=== PATIENT | female | born 1985 | race Caucasian/White ===

== ENCOUNTER 2016-12-15 18:52 | Emergency (ER) | payer BC ==
[~2016-12-15] VITALS: Ht 177.8 cm; Wt 113.6 kg
[2016-12-15 18:56] VITALS: TEMP 98.1
[2016-12-15] MEDS ORDERED: CRUTCHES MC (20:29)
[2016-12-15 20:50] VITALS: BP 120/68; PULSE 81
== END 2016-12-15 20:51 | disposition home or self-care (01) ==
LOC: COL.ER 18:52
DX: S83.91XA Sprain of unspecified site of right knee, initial encounter (principal); Z90.89 Acquired absence of other organs; W17.89XA Other fall from one level to another, initial encounter
CPT/HCPCS: L1830

== ENCOUNTER → 2017-09-23 | Outpatient (CLI) | payer BC ==
[~2017-09-23] MED LIST: CRUTCHES MC
== END ==
LOC: COL.LAB 10:42
DX: O28.8 Other abnormal findings on antenatal screening of mother (principal); R76.8 Other specified abnormal immunological findings in serum; Z3A.12 12 weeks gestation of pregnancy

== ENCOUNTER 2018-02-26 17:31 | Emergency (ER) | payer BC ==
[~2018-02-26] VITALS: Ht 177.8 cm; Wt 118.2 kg
[2018-02-26 17:35] VITALS: TEMP 98.9
[2018-02-26 18:20] LABS: COLLECTION METHOD CLEAN CATCH
[2018-02-26 18:23] LABS: BASO % 0.1 % (0.0-2.0); EOS # 0.1 (0.0-0.7); EOS % 0.7 % (0-4.0); GRAN # 12.4 (1.4-6.5); GRAN % 91.8 % (42.2-75.2); HEMATOCRIT 41.6 % (37.0-47.0); HEMOGLOBIN 14.2 g/dl (12.5-16.0); LYMPH # 0.5 (1.2-3.4); LYMPH % 3.6 % (20.0-51.0); MEAN CELL VOLUME 82 fl (80.0-100.0); MEAN CORPUSCULAR HEMOGLOBIN 28 pg (27.0-31.0); MEAN CORPUSCULAR HGB CONC 34 g/dl (33.0-37.0); MEAN PLATELET VOLUME 10.5 fl (7.4-10.4); MONO # 0.5 (0.1-0.6); MONO % 3.5 % (1.7-9.3); PLATELET COUNT 169 K/mm3 (130-400); RED BLOOD COUNT 5.09 M/mm3 (4.10-5.30); REDCELL DISTRIBUTION WIDTH-CV 15.9 % (11.5-14.5)
[2018-02-26 18:40] LABS: ALBUMIN 3.6 gm/dL (3.5-5.0); CALCIUM 9.3 mg/dL (8.4-10.2); CREATININE, serum 0.48 mg/dL (0.52-1.25); POTASSIUM 3.6 mmol/L (3.4-5.0); TOTAL PROTEIN 6.4 gm/dL (6.4-8.2)
[2018-02-26 18:45] LABS: MUCOUS Present /lpf; PH 5 (5-8); SQUAMOUS EPITHELIAL 0-2 /hpf; URINE APPEARANCE Clear; URINE BACTERIA None Seen /hpf; URINE BILIRUBIN Negative (NEGATIVE); URINE BLOOD 2+ (NEGATIVE); URINE COLOR Yellow; URINE GLUCOSE Negative (NEGATIVE); URINE KETONE 2+ (NEGATIVE); URINE LEUKOCYTE ESTERASE Negative (NEGATIVE); URINE NITRATE Negative (NEGATIVE); URINE PROTEIN(semi-quant) 1+ (NEGATIVE)
--- NOTE | 2018-02-26 19:34 | NUR ---
NST done. 1931 - 1952. Baseline bpm 140, accelerations noted, no decelerations. Contractions every 3-4 minutes for 50 - 60 seconds. Pt denies feeling any pain, reports she just feels like the baby is moving when she has contractions.
[2018-02-26 20:21] VITALS: BP 129/80; PULSE 97
== END 2018-02-26 20:24 | disposition home or self-care (01) ==
LOC: COL.ER 17:31
PROVIDERS: Physician Assistant
DX: O99.613 Diseases of the digestive system complicating pregnancy, third trimester (principal); K52.9 Noninfective gastroenteritis and colitis, unspecified; Z90.49 Acquired absence of other specified parts of digestive tract; Z88.1 Allergy status to other antibiotic agents; Z3A.35 35 weeks gestation of pregnancy
CPT/HCPCS: J2405; J7030

== ENCOUNTER 2018-03-14 18:37 | Outpatient (CLI) | payer BC ==
[~2018-03-14] VITALS: Ht 177.8 cm; Wt 121.4 kg
[2018-03-14 18:46] VITALS: BP 128/83; PULSE 86; TEMP 98.2
[2018-03-14] MEDS ORDERED: PRENATAL MVI (18:58)
--- NOTE | 2018-03-14 19:00 | NUR ---
184- Patient ambulatory to LDR-5 from ED with . Patient states she has had severe back pain, constantly rating 6/10, for >1 week and has increasingly gotten worse since yesterday. Patient states she was seen in the office yesterday by RECEIVING CHECKER and had spotting after SVE and complains of increased "bloody show" today that she describes as "bleeding like the last day of a period", but denies filling a pad throughout the day. Patient also is complaining of increased pressure in lower back and bottom and states contractions are intermittently 8 minutes apart, lasting 40-50 seconds each. Patient denies leaking of fluid. Assessment completed. VSS. 1899- SVE / by this RN with no trace of bloody show or discharge on glove after check. 1914- updated. Orders for UA received. Call with results.
[2018-03-14 19:30] VITALS: BP 125/84; PULSE 73
[2018-03-14 19:31] LABS: COLLECTION METHOD CLEAN CATCH
[2018-03-14 19:40] LABS: MUCOUS Present /lpf; PH 6 (5-8); URINE APPEARANCE Hazy; URINE BACTERIA Rare /hpf; URINE BILIRUBIN Negative (NEGATIVE); URINE BLOOD 3+ (NEGATIVE); URINE COLOR Yellow; URINE GLUCOSE Negative (NEGATIVE); URINE KETONE Trace (NEGATIVE); URINE LEUKOCYTE ESTERASE 1+ (NEGATIVE); URINE NITRATE Negative (NEGATIVE); URINE PROTEIN(semi-quant) Negative (NEGATIVE); URINE RBC >50 /hpf; URINE UROBILINOGEN Negative (NEGATIVE)
[2018-03-14 20:00] VITALS: BP 131/87; PULSE 87
--- NOTE | 2018-03-14 20:50 | NUR ---
2029- Macrobid 100mg PO BID x 7 days called into [facility]. 2044- Macrobid 100mg PO given. See eMAR. Discharge education completed with patient and spouse. 2049- Patient and ambulatory off unit.
== END 2018-03-14 20:50 | disposition home or self-care (01) ==
LOC: LDRO 18:37
PROVIDERS: Obstetrics & Gynecology
DX: O62.9 Abnormality of forces of labor, unspecified (principal); Z3A.37 37 weeks gestation of pregnancy

== ENCOUNTER → 2018-04-23 | Emergency (ER) | payer BC ==
[~2018-04-23] VITALS: Ht 177.8 cm; Wt 111.4 kg
[~2018-04-23] MED LIST changes: +DYNAPEN 250MG250 MG PO; +IBU600 MG PO; +PERCOCET 325 MG1 TA2 PO; +PRENATAL MVI
[2018-04-24 02:27] VITALS: BP 116/70; PULSE 96; TEMP 98.8
[2018-04-24 16:23] LABS: BASO % 0.1 % (0.0-2.0); EOS # 0.1 (0.0-0.7); EOS % 0.6 % (0-4.0); GRAN # 6.9 (1.4-6.5); GRAN % 85.7 % (42.2-75.2); HEMATOCRIT 37.8 % (37.0-47.0); HEMOGLOBIN 12.5 g/dl (12.5-16.0); LYMPH # 0.6 (1.2-3.4); LYMPH % 7.6 % (20.0-51.0); MEAN CELL VOLUME 83 fl (80.0-100.0); MEAN CORPUSCULAR HEMOGLOBIN 27 pg (27.0-31.0); MEAN CORPUSCULAR HGB CONC 33 g/dl (33.0-37.0); MEAN PLATELET VOLUME 9.8 fl (7.4-10.4); MONO # 0.5 (0.1-0.6); MONO % 5.8 % (1.7-9.3); PLATELET COUNT 202 K/mm3 (130-400); RED BLOOD COUNT 4.58 M/mm3 (4.10-5.30); REDCELL DISTRIBUTION WIDTH-CV 14.6 % (11.5-14.5)
[2018-04-24 17:02] LABS: ALBUMIN 3.6 gm/dL (3.5-5.0); BILIRUBIN,TOTAL 0.9 mg/dL (0.0-1.0); CALCIUM 8.8 mg/dL (8.4-10.2); CREATININE, serum 0.81 mg/dL (0.52-1.25); POTASSIUM 3.5 mmol/L (3.4-5.0); TOTAL PROTEIN 6.3 gm/dL (6.4-8.2)
== END ==
LOC: COL.ER 10:04
PROVIDERS: Family Medicine
DX: N61.0 Mastitis without abscess (principal); Z90.89 Acquired absence of other organs

== ENCOUNTER 2019-02-06 20:54 | Inpatient (IN) | payer BC ==
[~2019-02-06] VITALS: Ht 177.8 cm; Wt 123.4 kg
[2019-02-06 21:31] LABS: BASO % 0.3 % (0.0-2.0); EOS # 0.3 (0.0-0.7); EOS % 3.2 % (0-4.0); GRAN # 5.9 (1.4-6.5); GRAN % 68.7 % (42.2-75.2); HEMATOCRIT 39.8 % (37.0-47.0); HEMOGLOBIN 12.9 g/dl (12.5-16.0); LYMPH # 1.6 (1.2-3.4); LYMPH % 18.7 % (20.0-51.0); MEAN CELL VOLUME 82 fl (80.0-100.0); MEAN CORPUSCULAR HEMOGLOBIN 27 pg (27.0-31.0); MEAN CORPUSCULAR HGB CONC 32 g/dl (33.0-37.0); MEAN PLATELET VOLUME 9.5 fl (7.4-10.4); MONO # 0.8 (0.1-0.6); MONO % 8.9 % (1.7-9.3); PLATELET COUNT 241 K/mm3 (130-400); RED BLOOD COUNT 4.87 M/mm3 (4.10-5.30)
[2019-02-06 21:44] LABS: ALANINE AMINOTRANSFERASE 9 U/L (9-52); ALBUMIN 4.6 gm/dL (3.5-5.0); ALKALINE PHOSPHATASE 58 U/L (50-136); ANION GAP 9 mmol/L (7-16); AST,SGOT 18 U/L (15-37); BILIRUBIN,TOTAL 0.8 mg/dL (0.0-1.0); BLOOD UREA NITROGEN 19 mg/dL (7-17); CALCIUM 9.3 mg/dL (8.4-10.2); CARBON DIOXIDE 28 mmol/L (22-30); CHLORIDE 102 mmol/L (98-107); CREATININE, serum 0.84 (0.52-1.25); GLUCOSE 144 mg/dL (74-106); POTASSIUM 3.7 mmol/L (3.4-5.0); SODIUM 139 mmol/L (137-145); TOTAL PROTEIN 7.5 gm/dL (6.4-8.2)
[2019-02-06 21:57] LABS: TROPONIN-I < 0.012 ng/mL (0.000-0.035)
[2019-02-06 23:07] LABS: PARTIAL THROMBOPLASTIN TIME 39.9 SECONDS (26.0-37.0)
--- NOTE | 2019-02-06 23:34 | NUR ---
Received report from ED nurse
--- NOTE | 2019-02-06 23:50 | NUR ---
Patient arrives to ICU room 7 via ED wheelchair. Patient ambulates to bed with standby assist. Heparin drip is infusing at 2200 units/hour to a peripheral site in the [facility] upon arrival. Initial vitals are all within normal limits. Patient reports a single suture in the perineal area from D&C procedure on Friday; no other skin issues noted. Patient reports "stabbing" pain as 5/10 in the left shoulder and chest area. Provider notified and orders received for morphine and zofran. A repeat HepXa has been ordered for 514. Will continue to monitor.
[2019-02-07 01:16] VITALS: BP 126/71; PULSE 108; TEMP 98.6
--- NOTE | 2019-02-07 02:20 | NUR ---
Patient continues to report chest and L shoulder pain despite 0045 administration of PRN morphine. Physician notified; received orders for a one-time dose of 4mg morhpine IV.
--- NOTE | 2019-02-07 05:20 | NUR ---
Patient's chest and shoulder pain has not resolved or improved since last administration of morphine at 0220. Patient states pain is a 9/10 and describes pain as sharp and stabbing. Lung sounds continue to sound clear to ausculatation and vitals are within normal limits. Physician notified. Received orders for a 2-view chest x-ray and a one-time dose of fentanyl 50 mcg IV. Patient was assisted to the recliner, as she stated she felt the best when sitting up. Will continue to monitor and reassess.
[2019-02-07 05:24] LABS: BASO % 0.4 % (0.0-2.0); EOS # 0.2 (0.0-0.7); EOS % 1.4 % (0-4.0); GRAN # 8.6 (1.4-6.5); GRAN % 80.2 % (42.2-75.2); HEMATOCRIT 38.7 % (37.0-47.0); HEMOGLOBIN 12.7 g/dl (12.5-16.0); LYMPH # 1.1 (1.2-3.4); LYMPH % 10.5 % (20.0-51.0); MEAN CELL VOLUME 81 fl (80.0-100.0); MEAN CORPUSCULAR HEMOGLOBIN 27 pg (27.0-31.0); MEAN CORPUSCULAR HGB CONC 33 g/dl (33.0-37.0); MEAN PLATELET VOLUME 9.8 fl (7.4-10.4); MONO # 0.8 (0.1-0.6); MONO % 7.2 % (1.7-9.3); PLATELET COUNT 236 K/mm3 (130-400); RED BLOOD COUNT 4.76 M/mm3 (4.10-5.30); REDCELL DISTRIBUTION WIDTH-CV 15.2 % (11.5-14.5)
[2019-02-07 05:28] LABS: CALCIUM 8.7 mg/dL (8.4-10.2); CREATININE, serum 0.7 (0.52-1.25); POTASSIUM 3.8 mmol/L (3.4-5.0)
--- NOTE | 2019-02-07 07:33 | NUR ---
Report recieved from Rosie CALDWELL. IV medications verified. Patient denies needs at this time.
--- NOTE | 2019-02-07 07:33 | NUR ---
Report given to JAVI Reed.
[2019-02-07 08:00] VITALS: BP 110/70; PULSE 104; TEMP 97.5
[2019-02-07 12:00] VITALS: BP 111/62; PULSE 115
[2019-02-07 16:45] VITALS: BP 99/65; PULSE 110; TEMP 97.2
--- NOTE | 2019-02-07 16:45 | NUR ---
Continues to sit up in chair with at bedside. Denies need for PRN for pain, states "it's only bad when I try to take a deep breath or cough." Will continue to monitor for need for PRN medication.
--- NOTE | 2019-02-07 19:19 | NUR ---
Bedside report given to Maverick CALDWELL. Patient states minimal relief after Ultram, offered [place] and/or Zanaflex. Will let night shift manager nurse know.
[2019-02-07 20:00] VITALS: BP 113/64; PULSE 87; TEMP 98.6
--- NOTE | 2019-02-07 20:00 | NUR ---
PATIENT SITTING UP IN RECLINER, PAIN 5/10 LEFT SHOULDER, MUSCLE RELAXER GIVEN
--- NOTE | 2019-02-07 22:01 | NUR ---
PATIENT ASLEEP AND WANTS TO STAY IN RECLINER.
[2019-02-08 00:10] VITALS: BP 107/60; PULSE 90; TEMP 97.8
[2019-02-08 04:00] VITALS: BP 115/60; PULSE 86; TEMP 96.3
[2019-02-08 08:00] VITALS: BP 119/76; PULSE 115; TEMP 97.9
--- NOTE | 2019-02-08 08:00 | NUR ---
Shift assessment complete at this time. Plan of care reviewed at bedside with patient. Additional time taken to address any other needs or concerns. Vitals stable at this time. Pt reports mild to moderate shoulder pain on L side. Will administer PRN Morley per orders. See eMAR for documentation. Pt denies any other complaints or concerns at this time. Pt resting in chair, call light within reach, will continue to monitor.
--- NOTE | 2019-02-08 09:31 | NUR ---
Initial visit; Patient and her thanked Scrap Charger for looking in on her and keeping her in Scrap Charger's prayers. Patient expecting visit from her Tobacco Packing Machine Operator.
[2019-02-08 12:00] VITALS: BP 96/56; PULSE 86; TEMP 98
[2019-02-08] MEDS ORDERED: ZANAFLEX 4MG TAB4 MG PO (12:12)
[2019-02-08] MEDS ORDERED: NAPROSYN500 MG PO (12:13)
--- NOTE | 2019-02-08 13:54 | NUR ---
Consulting Senior Practice Director met with patient and patient's , Randell (ph#[phone]) to discuss discharge plan. Patient lives in [place] with her and 10 month old son. Patient sees Dr. Lopez for primary care, however has not been seen in a couple years. Patient reports she usually just utilizes Urgent Care whenever she has a problem. Patient obtains medications from [facility]. Patient does not have Advance Directives at this time but states she and her have been discussing completing them soon. Patient will return home upon discharge. No additional concerns at this time.
== END 2019-02-08 12:46 | disposition home or self-care (01) | DRG 556 ==
LOC: COL.ER 20:54 → ICU 23:50
PROVIDERS: Emergency Medicine; Physician Assistant; ADMIT Hospitalist
DX: M25.512 Pain in left shoulder (principal); G56.21 Lesion of ulnar nerve, right upper limb; R07.89 Other chest pain; Z90.89 Acquired absence of other organs
CPT/HCPCS: 99239; A9284; C9113; J1644; J1885; J2270; J2405; J2765; J3010; J7030; Q9967

== ENCOUNTER → 2020-02-21 | Outpatient (CLI) | payer BC ==
[~2020-02-21] MED LIST changes: +NAPROSYN500 MG PO; +ZANAFLEX 4MG TAB4 MG PO
== END ==
LOC: DIA.ED
DX: O24.419 Gestational diabetes mellitus in pregnancy, unspecified control (principal)
CPT/HCPCS: G0108

== ENCOUNTER → 2020-03-13 | Outpatient (CLI) | payer BC | LOC: DIA.ED 07:41 | DX: O24.419 Gestational diabetes mellitus in pregnancy, unspecified control (principal); E03.9 Hypothyroidism, unspecified | CPT/HCPCS: G0108 ==

== ENCOUNTER 2020-03-21 12:21 | Outpatient (CLI) | payer BC ==
[~2020-03-21] VITALS: Ht 180.3 cm; Wt 124.1 kg
--- NOTE | 2020-03-21 12:15 | NUR ---
PATIENT HERE FOR OB CHECK. PATIENT TO LR 3. CHANGED INTO GOWN, ON EFM, ANUM CASTRO. PATIENT HERE. PATIENT STATES SHE FELL ON FRIDAY DOWN HER STAIRS ON HER BOTTOM. PATIENT STATES SHE HAD CONTRACTIONS EVERY 6 MINUTES YESTERDAY LASTING 1 MINUTE LONG. PATIENT STATES SHE HAS BLOODY DISCHARGE, BUT WAS CHECKED ON FRIDAY IN THE OFFICE. SVE PREFORMED. /3OLD DARK BLOOD NOTED ON GLOVE. DR ALANIS NOTIFIED
[2020-03-21 13:00] VITALS: BP 117/76; PULSE 88; TEMP 98
[2020-03-21 13:30] VITALS: BP 118/83; PULSE 99
[2020-03-21 13:40] VITALS: BP 117/71; PULSE 95
== END 2020-03-21 13:50 | disposition home or self-care (01) ==
LOC: LDRO 12:21
DX: O62.9 Abnormality of forces of labor, unspecified (principal); O9A.213 Injury, poisoning and certain other consequences of external causes complicating pregnancy, third trimester; Z3A.37 37 weeks gestation of pregnancy; Z86.16 Personal history of COVID-19

== ENCOUNTER → 2020-04-07 | Outpatient (CLI) | payer BC | LOC: ZCOL.LAB 08:00 | DX: Z20.822 Contact with and (suspected) exposure to COVID-19 (principal) ==

== ENCOUNTER 2020-04-12 06:39 | Inpatient (IN) | payer BC ==
[~2020-04-12] VITALS: Ht 180.3 cm; Wt 123.2 kg
[2020-04-12] VITALS (27 sets, daily range): BP systolic 106–150; BP diastolic 58–88; PULSE 71–101; TEMP 98.1–98.3
--- NOTE | 2020-04-12 08:01 | NUR ---
0700 PATIENT HERE FROM HOME FOR INDUCTION OF LABOR. EFM ON FHT 120 BABY VERY ACTIVE. CONTRACTIONS IRREGULAR AND MILD AT THIS TIME. ASSESSMENT COMPLETED. IV STARTED IN LEFT WRIST LR LULA AT THIS TIME. CONSENTS SIGNED
[2020-04-12 08:02] LABS: BASO % 0.2 % (0.0-2.0); EOS # 0.2 (0.0-0.7); EOS % 2.4 % (0-4.0); GRAN # 7.8 (1.4-6.5); GRAN % 79.3 % (42.2-75.2); HEMATOCRIT 42.1 % (37.0-47.0); LYMPH % 10.5 % (20.0-51.0); MEAN CELL VOLUME 82 fl (80.0-100.0); MEAN CORPUSCULAR HEMOGLOBIN 27 pg (27.0-31.0); MEAN CORPUSCULAR HGB CONC 33 g/dl (33.0-37.0); MEAN PLATELET VOLUME 10.9 fl (7.4-10.4); MONO # 0.7 (0.1-0.6); MONO % 7.4 % (1.7-9.3); PLATELET COUNT 169 K/mm3 (130-400); RED BLOOD COUNT 5.15 M/mm3 (4.10-5.30); REDCELL DISTRIBUTION WIDTH-CV 16.6 % (11.5-14.5)
--- NOTE | 2020-04-12 08:14 | NUR ---
0730 BLOOD SUGAR 100
--- NOTE | 2020-04-12 10:39 | NUR ---
1000 PATIENT IS READY FOR EPIDURAL. Jrodan DIAZ CRNA CALLED TO COME FOR PLACEMENT AND DR ALANIS CALLED ALSO. ON WAY IN NOW TO SEE PATIENT
--- NOTE | 2020-04-12 10:41 | NUR ---
1015 PATIENT SITS UP ON EDGE OF BED FOR EPIDURAL PLACEMENT. Jordan DIAZ TIN CAN LABORER AT BEDSIDE. SEE TIN CAN LABORER NOTES FOR QUESTIONS. PATIENT TOLERATES WELL
--- NOTE | 2020-04-12 10:43 | NUR ---
1040 DR ALANIS AT BEDSIDE. SVE 4-//-2 AROM WITH AMNIOHOOK. LARGE AMOUNT OF CLEAR FLUID NOTED.
--- NOTE | 2020-04-12 11:57 | NUR ---
1055 PATIENT FEELING URGE TO PUSH. SVE ANT LIP/100/+1. 1100 DR CALLED TO COME TO HOSPITAL NOW FOR DELIVERY. ENCOURAGE PATIENT TO BREATH THROUGH EACH CONTRACTION AND TRY NOT TO PUSH.
--- NOTE | 2020-04-12 11:59 | NUR ---
1110 DR ALANIS HERE. PATIENT WILL PUSH WITH EACH CONTRACTIONS. 1126 BABY GIRL BORN VIA BY DR ALANIS. STRONG CRY NOTED. BABY TO MOMS CHEST. CORD CLAMPED AND CUT BY DR. CASTILLO REAPIR DONE AT THIS TIME. PATIENT TOLERATE WELL. 1133 BLADDER DRAINED WITH RED ARCHER BY . PLACENTA DELIVERED AT THIS TIME. PITOCIN STARTED AT 333/HR PER PROTOCOL. FUNDUS FIRM WITH MODERATE AMOUNT OF BLEEDING AT THIS TIME
[2020-04-13 07:00] VITALS: BP 126/85; PULSE 90; TEMP 97.3
[2020-04-13 07:28] LABS: HEMATOCRIT 40.9 % (37.0-47.0); HEMOGLOBIN 13.4 g/dl (12.5-16.0)
[2020-04-13] MEDS ORDERED: IBU600 MG PO (08:07)
--- NOTE | 2020-04-13 09:04 | NUR ---
Initial visit; Parents thanked Housetrailer Servicer for offering congratulations and God's blessings for the of their daughter. Housetrailer Servicer thanked family for choosing [facility].
[2020-04-13 11:00] VITALS: BP 137/81; PULSE 84; TEMP 99
== END 2020-04-13 14:00 | disposition home or self-care (01) | DRG 807 ==
LOC: LDR 06:39 → OB 06:39 → LDR 07:04 → OB 11:54
PROVIDERS: ADMIT Obstetrics & Gynecology
PROC: 10E0XZZ Delivery of Products of Conception, External Approach (ICD-10-PCS; principal; 2020-04-12)
PROC: 0KQM0ZZ Repair Perineum Muscle, Open Approach (ICD-10-PCS; 2020-04-12)
PROC: 3E033VJ Introduction of Other Hormone into Peripheral Vein, Percutaneous Approach (ICD-10-PCS; 2020-04-12)
DX: O48.0 Post-term pregnancy (principal); Z37.0 Single live birth; Z3A.40 40 weeks gestation of pregnancy; O99.284 Endocrine, nutritional and metabolic diseases complicating childbirth; O24.429 Gestational diabetes mellitus in childbirth, unspecified control; O99.344 Other mental disorders complicating childbirth; F32.9 Major depressive disorder, single episode, unspecified; E03.9 Hypothyroidism, unspecified; K21.9 Gastro-esophageal reflux disease without esophagitis; O70.1 Second degree perineal laceration during delivery; L40.9 Psoriasis, unspecified
CPT/HCPCS: J2590; J2795; J7120

== ENCOUNTER 2020-05-26 16:19 | Emergency (ER) | payer BC ==
[~2020-05-26] VITALS: Ht 177.8 cm; Wt 112.7 kg
[2020-05-26 16:44] VITALS: BP 117/86; PULSE 75
[2020-05-26 17:37] VITALS: TEMP 98.1
== END 2020-05-26 17:41 | disposition home or self-care (01) ==
LOC: COL.ER 16:19
DX: N61.0 Mastitis without abscess (principal); Z90.89 Acquired absence of other organs; Z88.1 Allergy status to other antibiotic agents

== ENCOUNTER 2023-01-24 12:29 | Inpatient (IN) | payer MEDICAID ==
[2023-01-24] VITALS (42 sets, daily range): BP systolic 106–157; BP diastolic 63–668; PULSE 73–121; TEMP 97.9–98.2
[~2023-01-24] VITALS: Ht 177.8 cm; Wt 117.5 kg
[~2023-01-24 12:29] MED LIST changes: +PRENATAL TABLET; +ZOFRAN ODT4 MG PO
--- NOTE | 2023-01-24 12:35 | NUR ---
1235PT ARRIVED AMBULATORY TO UNIT WITH SPOUSE AND SISTER. PT CHANGED INTO GOWN. PT COMFORTABLE IN BED. 1240THIS RN AT BEDSIDE TO PLACE EFM AND TOCO. PT VITAL SIGNS STABLE. EFM TRACING CAT I. PT STATES POSITIVE MOVEMENT. PT DENIES VAGINAL BLEEDING AND DENIES SROM. PT REPORTS HAVING CTX EVERY 2.5-3 MINUTES APART AT HOME LASTING 30-[address] SEC[address]DS[address] SHE STATES ON THE WAY HERE, THEY WENT AWAY. 1300IV PLACED AND LABS DRAWN. 1302IVF STARTED AT THIS TIME. THIS RN DISCUSSES POC WITH PT. PT VERBALIZES UNDERSTANDING.
--- NOTE | 2023-01-24 13:11 | NUR ---
1304DR ANNABELLE AT BEDSIDE. 1305DR ANNABELLE SONO AT THIS TIME. DR ALANIS STATES FETUS IS HEAD DOWN. 1307DR ANNABELLE DISCUSSES POC WITH PT. PT VERBALIZES UNDERSTANDING. 1311SVE AT THIS TIME PER DR ALANIS. /-3. AROM AT THIS TIME WELL. MINIMAL AMOUNT OF FLUID NOTED. 1311PITOCIN STARTED AT THIS TIME. 1315PT STATES SHE FEELS A GUSH OF FLUID.
[2023-01-24 13:16] LABS: BASO % 0.2 % (0.0-2.0); EOS # 0.7 K/mm3 (0.0-0.7); EOS % 8.2 % (0.0-4.0); GRAN # 6.2 K/mm3 (1.4-6.5); GRAN % 71.6 % (42.2-75.2); HEMATOCRIT 40.8 % (37.0-47.0); HEMOGLOBIN 14.1 g/dl (12.5-16.0); LYMPH # 1.2 K/mm3 (1.2-3.4); LYMPH % 13.4 % (20.0-51.0); MEAN CELL VOLUME 84 fl (80.0-100.0); MEAN CORPUSCULAR HEMOGLOBIN 29 pg (27-31); MEAN CORPUSCULAR HGB CONC 35 g/dl (33.0-37.0); MONO # 0.6 K/mm3 (0.1-0.6); MONO % 6.4 % (1.7-9.3); PLATELET COUNT 171 K/mm3 (130-400); RED BLOOD COUNT 4.87 M/mm3 (4.10-5.30); REDCELL DISTRIBUTION WIDTH-CV 16.5 % (11.5-14.5)
--- NOTE | 2023-01-24 15:19 | NUR ---
1440LOUANN MANGANESE WHEELER NOTIFIED OF PT REQUEST FOR EPIDURAL. 1508LOUANN MANGANESE WHEELER AT BEDSIDE. PT UP TO SITTING ON SIDE OF BED. PULSE OX PLACED. PT VITAL SIGNS STABLE. EFM TRACING CAT I. ERNESTO DISCUSSES POC WITH PT. PT VERBALIZES AGREEMENT. 1519TEST DOSE ADMINISTERED PER ERNESTO MANGANESE WHEELER AT THIS TIME. PT TOLERATED WELL. EFM TRACING CAT I. PT VITAL SIGNS STABLE. 1525PT BACK TO BED. PT POSITIONED WEDGED LEFT AT THIS TIME. PT VITAL SIGNS STABLE. EFM TRACING CAT I. PT COMFORTABLE IN BED.
--- NOTE | 2023-01-24 16:20 | NUR ---
1620THIS PLACED A [place] AT THIS TIME. SVE ALSO AT THIS TIME. /-3. PT TOLERATED WELL. EFM TRACING CAT I. PT VITAL SIGNS STABLE.
--- NOTE | 2023-01-24 19:15 | NUR ---
This RN unable to determine decels during this tracing time due to maternal positioning and movement. Pt sits herself more upright and leans over her abdomen for comfort. RN at bedside monitoring pt and status.
--- NOTE | 2023-01-24 19:30 | NUR ---
RN unable to determine decels during this tracing time due to maternal position and movement. Pt remains in jerrica with her legs frogged and is comfortable and does not want to reposition at this time. RN at bedside monitoring pt and status.
--- NOTE | 2023-01-24 19:45 | NUR ---
RN observes an interuption in the tracing during this time due to maternal positioning. Pt sitting upright some and leans over her abdomen for comfort. Pt reports feeling an increase in pain in her pelvic area during ctx that is not improved with pushing her epidural bolus button. Pt repositioned to her left side with her right leg in the stirrup. Pt reports a relief in some of her pain at this time but it is still there. I informed pt that I would talk to anesthesia in a few minutes to see how her pain can be improved.
--- NOTE | 2023-01-24 20:30 | NUR ---
RN unable to determine baseline, accels or decels during this tracing time due to maternal position on her left side with right leg in the stirrup. Pt placed back into the stirrup, monitors adjusted and pt to rest for a bit.
--- NOTE | 2023-01-24 20:45 | NUR ---
This RN continues to have difficulty determining accels or decels during this tracing time due to maternal position. RN able to get FHT for short periods of time when the US is held in place. This RN remains at bedside adjusting US.
--- NOTE | 2023-01-24 22:15 | NUR ---
2210: Pt notifies this RN that she feels nauseous and pushy when she has a ctx. RN obtained consent to a cervical exam. 2212: SVE /+1 and informed pt I would notify Dr Trejo and prepare for delivery. 2214: Dr Trejo notified of pt SVE and request to come to unit for delivery.
--- NOTE | 2023-01-24 22:30 | NUR ---
2225: Dr Trejo at the bedside, holder removed and pt prepared for delivery.
[2023-01-25] VITALS (8 sets, daily range): BP systolic 114–133; BP diastolic 66–82; PULSE 75–94; TEMP 97.9–98.3
[2023-01-25 05:15] LABS: HEMATOCRIT 35.3 % (37.0-47.0); HEMOGLOBIN 11.9 g/dl (12.5-16.0)
[2023-01-25] MEDS ORDERED: IBU600 MG PO (07:02)
[2023-01-26 07:43] VITALS: BP 140/84; PULSE 94
== END 2023-01-26 12:12 | disposition home or self-care (01) | DRG 807 ==
LOC: LDR 12:29 → OB 12:37
PROVIDERS: ADMIT Obstetrics & Gynecology
PROC: 10E0XZZ Delivery of Products of Conception, External Approach (ICD-10-PCS; principal; 2023-01-24)
PROC: 0KQM0ZZ Repair Perineum Muscle, Open Approach (ICD-10-PCS; 2023-01-24)
PROC: 3E033VJ Introduction of Other Hormone into Peripheral Vein, Percutaneous Approach (ICD-10-PCS; 2023-01-24)
PROC: 10907ZC Drainage of Amniotic Fluid, Therapeutic from Products of Conception, Via Natural or Artificial Opening (ICD-10-PCS; 2023-01-24)
DX: O99.344 Other mental disorders complicating childbirth (principal); Z37.0 Single live birth; F41.9 Anxiety disorder, unspecified; F32.A Depression, unspecified; O99.214 Obesity complicating childbirth; L40.9 Psoriasis, unspecified; O99.72 Diseases of the skin and subcutaneous tissue complicating childbirth; O70.1 Second degree perineal laceration during delivery; O43.113 Circumvallate placenta, third trimester; K21.9 Gastro-esophageal reflux disease without esophagitis; O99.62 Diseases of the digestive system complicating childbirth; Z3A.39 39 weeks gestation of pregnancy; Z88.8 Allergy status to other drugs, medicaments and biological substances; Z86.718 Personal history of other venous thrombosis and embolism; Z86.711 Personal history of pulmonary embolism; Z23 Encounter for immunization
CPT/HCPCS: J2590; J2795; J7120

== ENCOUNTER 2023-03-24 10:01 | Outpatient (CLI) | payer MEDICAID ==
[~2023-03-24] VITALS: Ht 177.8 cm; Wt 109.1 kg
[2023-03-24] MEDS ORDERED: TAMIFLU 75MG75 MG PO (10:41)
[2023-03-24 11:06] VITALS: BP 115/81; PULSE 80; TEMP 97.9
--- NOTE | 2023-03-24 11:11 | NUR ---
Per pt report she has a daughter in the homw with recent dx of influenza.Pt reports no symptoms and currently taking tamiflu for precautionary reasons.Pt agress to wear mask while in facility,mask provided
--- NOTE | 2023-03-24 11:59 | NUR ---
Pt to procedure,report to Ranjana Lawson.
[2023-03-24 13:26] VITALS: BP 109/78; PULSE 83
--- NOTE | 2023-03-24 14:30 | NUR ---
Discharge instructions given to pt.Pt verbalizes understanding.Pt escortedout by this nurse.
== END 2023-03-24 14:36 ==
LOC: COL.CAR 10:01
DX: R55 Syncope and collapse (principal); R00.0 Tachycardia, unspecified; R00.2 Palpitations; R42 Dizziness and giddiness; I34.0 Nonrheumatic mitral (valve) insufficiency; Z77.22 Contact with and (suspected) exposure to environmental tobacco smoke (acute) (chronic)

== ENCOUNTER → 2023-05-07 | Outpatient (CLI) | payer MEDICAID ==
[~2023-05-07] MED LIST changes: +Gadoterate 20 ML VIAL IV ONE; +TAMIFLU 75MG75 MG PO
== END ==
LOC: COL.RAD 08:54
DX: R42 Dizziness and giddiness (principal); H55.00 Unspecified nystagmus; Z86.711 Personal history of pulmonary embolism
CPT/HCPCS: A9575